=== PATIENT | male | born 1950 | race American Indian/Alaskan Native ===

== ENCOUNTER 2020-08-07 03:02 | Inpatient (IN) | payer BC, MEDICAID, OTHER ==
[2020-08-07] MEDS ORDERED: SODIUM CHLORIDE 0.9% 1000 ML 1,000 ML IV ONE ×4 (03:20→05:44)
--- NOTE | 2020-08-07 03:21 | Emergency Department Report ---
ED General Adult HPI - General Chief complaint: Hyperglycemia Stated complaint: HYPERGLYCEMIA PUI?: No Time Seen by Provider: 08/07/20 03:19 Source: patient, EMS Mode of arrival: Stretcher Limitations: No Limitations - History of Present Illness Initial comments: Patient is a 70-year-old male who presents emergency room for elevated blood sugar. Patient states he is diabetic but nobody will give him his insulin. Patient states he is got dry mouth and increased urinary frequency. Patient has got increased thirst. Patient denies chest pain or shortness of breath. Patient denies abdominal pain. Patient denies nausea vomiting. Patient states he has type 2 diabetes. Patient denies headache. Patient denies blurry vision. Patient denies recent travel. Patient denies recent international travel. Patient denies exposure to the novel coronavirus. Patient denies sick contacts. Patient denies fever and chills. Patient denies cough. Patient denies diarrhea. Patient denies coming in contact with anybody with symptoms of the novel coronavirus. -: Sudden Severity scale (0 -10): 0 Consistency: constant Associated Symptoms: malaise. denies: confusion, chest pain, cough, diaphoresis, fever/chills, headaches, loss of appetite, nausea/vomiting, rash, seizure, shortness of breath, syncope, weakness Treatments Prior to Arrival: none - Related Data Home Medications Medication Instructions Recorded Confirmed Last Taken No Known Home Medications [No 08/07/20 08/07/20 Unknown Reported Home Medications] Allergies Allergy/AdvReac Type Severity Reaction Status Date / Time No Known Allergies Allergy Verified 08/07/20 04:16 ED Review of Systems ROS: Stated complaint: HYPERGLYCEMIA Other details as noted in HPI Constitutional: denies: chills, fever Eyes: denies: eye pain, eye discharge, vision change ENT: denies: ear pain, throat pain Respiratory: denies: cough, shortness of breath, wheezing Cardiovascular: denies: chest pain, palpitations Endocrine: see HPI, increased thirst, increased urine Gastrointestinal: denies: abdominal pain, nausea, diarrhea Genitourinary: denies: urgency, dysuria Musculoskeletal: denies: back pain, joint swelling, arthralgia Skin: denies: rash, lesions Neurological: denies: headache, weakness, paresthesias Psychiatric: denies: anxiety, depression Hematological/Lymphatic: denies: easy bleeding, easy bruising ED Past Medical Hx - Past Medical History Previous Medical History?: Yes Hx Diabetes: Yes - Surgical History Past Surgical History?: No - Family History Family history: no significant - Social History Smoking Status: Never Smoker Substance Use Type: None - Medications Home Medications: Home Medications Medication Instructions Recorded Confirmed Last Taken Type No Known Home Medications [No 08/07/20 08/07/20 Unknown History Reported Home Medications] ED Physical Exam - General Limitations: No Limitations General appearance: alert, in no apparent distress - Head Head exam: Present: atraumatic, normocephalic - Eye Eye exam: Present: normal appearance - ENT ENT exam: Present: mucous membranes dry - Neck Neck exam: Present: normal inspection - Respiratory Respiratory exam: Present: normal lung sounds bilaterally. Absent: respiratory distress - Cardiovascular Cardiovascular Exam: Present: regular rate, normal rhythm. Absent: systolic murmur, diastolic murmur, rubs, gallop - GI/Abdominal GI/Abdominal exam: Present: soft, normal bowel sounds - Rectal Rectal exam: Present: deferred - Extremities Exam Extremities exam: Present: normal inspection - Back Exam Back exam: Present: normal inspection - Neurological Exam Neurological exam: Present: alert, oriented X3 - Psychiatric Psychiatric exam: Present: normal affect, normal mood - Skin Skin exam: Present: warm, dry, intact, normal color. Absent: rash ED Course Vital Signs 08/07/20 08/07/20 08/07/20 03:20 03:30 04:00 Temperature 97.6 F Pulse Rate 133 H 122 H 126 H Respiratory 23 24 29 H Rate Blood Pressure 172/82 142/87 Blood Pressure 172/82 [Left] O2 Sat by Pulse 96 98 Oximetry 08/07/20 08/07/20 08/07/20 04:31 05:01 05:31 Temperature Pulse Rate 117 H 116 H 115 H Respiratory 17 22 22 Rate Blood Pressure 179/92 169/92 Blood Pressure [Left] O2 Sat by Pulse 97 98 Oximetry - Reevaluation(s) Reevaluation #1: Nurse unable to obtain a peripheral IV. A ultrasound-guided peripheral IV was obtained in the right upper arm. See procedure note. Patient tolerated procedure well. 08/07/20 03:35 Reevaluation #2: Patient's heart rate improved. Patient will be given continuous normal saline boluses. 08/07/20 04:09 Reevaluation #3: Patient severely acidotic as most likely due to DKA. Patient has elevated sugar. Patient will be started on DKA protocol to include fluids and insulin drip. 08/07/20 04:30 Reevaluation #4: I discussed all results with patient. I discussed plan of care with patient. Patient agrees with plan of care and admission. Patient to be admitted to the hospitalist service. 08/07/20 05:10 - Consultations Consultation #1: Hospitalist consulted for admission. Hospitalist to admit patient. 08/07/20 05:10 - EJ/Peripheral Line Arm R Time Out Performed: Yes Indications: nurses unable to establis Skin Cleansed in Sterile Fashion: Yes Size: 18 Dressing Placed: Tegaderm, tape Patient Tolerated Procedure: well, no complications Additional Comments: Ultrasound-guided peripheral IV placed. IV placed in the right upper arm. Nonpulsatile blood return noted. ED Medical Decision Making - Lab Data Result diagrams: 08/07/20 03:30 08/07/20 04:46 - Medical Decision Making Patient is a 70-year-old male who presents emergency room for hypoglycemia patient complains of elevated blood sugar, increased thirst and increased urinary frequency. Patient has been out of insulin for quite some time. Patient was quite dehydrated and EMS and the nurses had difficulty starting an IV so a ultrasound-guided IV was placed. I placed a right upper extremity deep vein IV. See procedure note. Patient had labs done which were consistent with metabolic acidosis and DKA with hyperglycemia, acidosis, elevated anion gap and low bicarb. Patient's pH was very low. Patient was given multiple liters of fluid. Patient was then placed on a DKA protocol to include multiple liters of fluid and an insulin drip. Patient admitted to the hospitalist service for further evaluation and treatment and into the ICU. Critical care time documented due to the multiple reassessments, prolonged time at the bedside, interpretation of diagnostics and labs. - Differential Diagnosis DKA, hyperglycemia, noncompliance Critical Care Time: Yes Critical care time in (mins) excluding proc time.: 35 Critical care attestation.: If time is entered above; I have spent that time in minutes in the direct care of this critically ill patient, excluding procedure time. Critical Care Time: 35 minutes ED Disposition Clinical Impression: Hyperglycemia, Increased thirst, Hyperkalemia DKA (diabetic ketoacidoses) Qualifiers: Diabetes mellitus type: type 2 Diabetes mellitus complication detail: without coma Qualified Code(s): E11.10 - Type 2 diabetes mellitus with ketoacidosis without coma Disposition: DC-09 OP ADMIT IP TO THIS HOSP Is pt being admited?: Yes Does the pt Need Aspirin: No Condition: Critical Instructions: Diabetic Ketoacidosis (ED) Time of Disposition: 05:18
[2020-08-07 04:35] LABS: Basophils # (Auto) 0.1 K/mm3 (0.0-0.1); Basophils % (Auto) 0.3 % (0.0-1.8); Lymphocytes # (Auto) 0.8 K/mm3 (1.2-5.4); Lymphocytes % (Auto) 4.8 % (13.4-35.0); Mean Corpuscular HGB Conc 31 % (32-34); Mean Corpuscular Volume 93 fl (84-94); Monocytes # (Auto) 1.1 K/mm3 (0.0-0.8); Monocytes % (Auto) 6.3 % (0.0-7.3); Platelet Count 106 K/mm3 (140-440); Red Blood Count 5.63 M/mm3 (3.65-5.03); Red Cell Distribution Width 15.9 % (13.2-15.2)
[2020-08-07] MEDS ORDERED: DEXTROSE 50% IN WATER (25GM) 50 ML SYRINGE IV PRN ×2 (04:36→05:43)
[2020-08-07 04:44] LABS: Hematocrit 52.3 % (35.5-45.6); Hemoglobin 16.1 gm/dl (11.8-15.2)
[2020-08-07 04:45] LABS: Bilirubin,Urine NEG (Negative); Blood,Urine MOD (Negative); Color,Urine Straw (Yellow); Hyaline Casts,Urine 3 /LPF; Urobilinogen,Urine < 2.0 mg/dL (<2.0)
[2020-08-07] MEDS ORDERED: D5W/0.45% NACL/KCL 20 MEQ 20 MEQ/1,000 ML BAG IV SCH (05:00)
[2020-08-07] MEDS: INSULIN REGULAR, HUMAN 100 UNITS in SODIUM CHLORIDE 0.9% 99 ML IV SCH ×2 (05:19→14:49)
[2020-08-07 05:24] LABS: Calcium 8.4 mg/dL (8.4-10.2)
[2020-08-07] MEDS ORDERED: ONDANSETRON 4 MG/2 ML INJ IV PRN (05:43)
[2020-08-07] MEDS ORDERED: MAGNESIUM HYDROXIDE (MOM) ORAL LIQD UDC PO PRN (05:43)
[2020-08-07] MEDS ORDERED: MORPHINE 2 MG/1 ML INJ IV PRN (05:43)
[2020-08-07] MEDS ORDERED: SODIUM CHLORIDE 0.9% 1000 ML 1,000 ML IV SCH (05:45)
[2020-08-07] MEDS ORDERED: CALCIUM CHLORIDE 1,000 MG/10 ML SDV IVP ONE (05:47)
--- NOTE | 2020-08-07 06:13 | History and Physical Report ---
History of Present Illness Date of examination: 08/07/20 Date of admission: 08/07/2020 Chief complaint: Elevated Blood Glucose History of present illness: 70-year-old -Irish male with known history of diabetes mellitus presenting in the emergency room today for evaluation of elevated blood glucose. Patient indicates that he has been on Metformin for his diabetes mellitus but had stopped taking the medication several months ago. He also has not been on his insulin is scheduled. He has been having dry mouth, increased thirst and increased urinary frequency. Patient denies any fever or chills, no chest pain or shortness of breath, no nausea vomiting, no abdominal pain. No hematuria or dysuria. Patient denies any sick contacts and no recent travel. Denies any contact with anyone with COVID-19. Work-up in the emergency room today reveals elevated blood glucose in the 600s, hyperkalemia of 6.0, anion gap of 46. Patient is being admitted into the intensive care unit with diabetic ketoacidosis and started on insulin and IV fluid. Past History Past Medical History: diabetes Past Surgical History: No surgical history Social history: no significant social history Family history: no significant family history Medications and Allergies Allergies Allergy/AdvReac Type Severity Reaction Status Date / Time No Known Allergies Allergy Verified 08/07/20 04:16 Home Medications Medication Instructions Recorded Confirmed Last Taken Type No Known Home Medications [No 08/07/20 08/07/20 Unknown History Reported Home Medications] Active Meds: Active Medications Dextrose (Dextrose 50% In Water (25gm) 50 Ml Syringe) 0 ml IV Q30MIN PRN; Protocol PRN Reason: Hypoglycemia Heparin Sodium (Porcine) (Heparin 5,000 Unit/1 Ml Vial) 5,000 unit SUB-Q Q8HR JACKIE Insulin Human Regular 100 (units/ Sodium Chloride) 100 mls @ 1 mls/hr IV TITR JACKIE; Protocol Last Admin: 08/07/20 05:19 Dose: 8 units/hr, 8 mls/hr Documented by: Potassium Chloride/Dextrose/Sod Cl (D5w/0.45% Nacl/Kcl 20 Meq) 20 meq in 1,000 mls @ 125 mls/hr IV DIRECT JACKIE Sodium Chloride (Nacl 0.9% 1000 Ml) 1,000 mls @ 999 mls/hr IV BOLUS ONE Stop: 08/07/20 06:44 Sodium Chloride (Nacl 0.9% 1000 Ml) 1,000 mls @ 150 mls/hr IV DIRECT JACKIE Magnesium Hydroxide (Magnesium Hydroxide (Mom) Oral Liqd Udc) 30 ml PO Q4H PRN PRN Reason: Constipation Morphine Sulfate (Morphine 2 Mg/1 Ml Inj) 2 mg IV Q4H PRN PRN Reason: Pain, Moderate (4-6) Ondansetron HCl (Ondansetron 4 Mg/2 Ml Inj) 4 mg IV Q8H PRN PRN Reason: Nausea And Vomiting Sodium Chloride (Sodium Chloride 0.9% 10 Ml Flush Syringe) 10 ml IV BID JACKIE Sodium Chloride (Sodium Chloride 0.9% 10 Ml Flush Syringe) 10 ml IV PRN PRN PRN Reason: LINE FLUSH Review of Systems Constitutional: no fever, no chills Ears, nose, mouth and throat: no nasal congestion, no sore throat Cardiovascular: no chest pain, no palpitations Respiratory: no cough, no shortness of breath Gastrointestinal: no abdominal pain, no nausea, no vomiting, no diarrhea Genitourinary Male: urinary frequency, no dysuria, no hematuria, no flank pain Musculoskeletal: no neck pain, no low back pain Integumentary: no rash, no pruritis Neurological: no headaches, no confusion Psychiatric: no anxiety, no depression Endocrine: excessive thirst, polydipsia, polyuria, no nocturia, no weight change Exam - Constitutional Vitals: Temp Pulse Resp BP Pulse Ox 97.6 F 115 H 22 169/92 98 08/07/20 03:20 08/07/20 05:31 08/07/20 05:31 08/07/20 05:31 08/07/20 05:31 General appearance: Present: no acute distress, well-nourished, other (Dry oral Mucosa) - EENT Eyes: Present: PERRL, EOM intact. Absent: scleral icterus ENT: hearing intact, clear oral mucosa, dentition normal - Neck Neck: Present: supple - Respiratory Respiratory effort: normal Respiratory: bilateral: CTA - Cardiovascular Rhythm: regular Heart Sounds: Present: S1 & S2. Absent: gallop, systolic murmur, diastolic murm ur, rub, click - Extremities Extremities: no ischemia, pulses intact, pulses symmetrical, No edema, normal temperature, normal color, Full ROM Peripheral Pulses: within normal limits - Abdominal General gastrointestinal: Present: soft, non-tender, non-distended, normal bowel sounds. Absent: mass - Integumentary Integumentary: Present: clear, warm, dry. Absent: rash - Musculoskeletal Musculoskeletal: strength equal bilaterally - Psychiatric Psychiatric: appropriate mood/affect, intact judgment & insight, memory intact, cooperative - Neurologic Neurologic: CNII-XII intact, no focal deficits, moves all extremities Results - Labs CBC & Chem 7: 08/07/20 03:30 08/07/20 04:46 Labs: Abnormal lab results 08/07/20 08/07/20 08/07/20 Range/Units 03:27 03:30 03:30 WBC 17.1 H (4.5-11.0) K/mm3 RBC 5.63 H (3.65-5.03) M/mm3 Hgb 16.1 H (11.8-15.2) gm/dl Hct 52.3 H (35.5-45.6) % MCHC 31 L (32-34) % RDW 15.9 H (13.2-15.2) % Plt Count 106 L (140-440) K/mm3 Lymph % (Auto) 4.8 L (13.4-35.0) % Lymph # (Auto) 0.8 L (1.2-5.4) K/mm3 [place] # (Auto) 1.1 H (0.0-0.8) K/mm3 Seg Neutrophils % 88.6 H (40.0-70.0) % Seg Neutrophils # 15.1 H (1.8-7.7) K/mm3 VBG pH (7.320-7.420) Sodium 127 L (137-145) mmol/L Potassium 5.7 H (3.6-5.0) mmol/L Chloride 82.9 L (98-107) mmol/L Carbon Dioxide 4 L* (22-30) mmol/L BUN 41 H (9-20) mg/dL Creatinine 2.0 H (0.8-1.3) mg/dL Glucose 638 H* (75-100) mg/dL POC Glucose > 600 H (70-105) mg/dL Alkaline Phosphatase 193 H (35-129) units/L Total Protein 8.5 H (6.3-8.2) g/dL 06/25/21 06/25/21 Range/Units 03:30 04:46 WBC (4.5-11.0) K/mm3 RBC (3.65-5.03) M/mm3 Hgb (11.8-15.2) gm/dl Hct (35.5-45.6) % MCHC (32-34) % RDW (13.2-15.2) % Plt Count (140-440) K/mm3 Lymph % (Auto) (13.4-35.0) % Lymph # (Auto) (1.2-5.4) K/mm3 [place] # (Auto) (0.0-0.8) K/mm3 Seg Neutrophils % (40.0-70.0) % Seg Neutrophils # (1.8-7.7) K/mm3 VBG pH 7.016 L* (7.320-7.420) Sodium 131 L (137-145) mmol/L Potassium 6.0 H (3.6-5.0) mmol/L Chloride 84.0 L (98-107) mmol/L Carbon Dioxide 5 L* (22-30) mmol/L BUN 43 H (9-20) mg/dL Creatinine 2.1 H (0.8-1.3) mg/dL Glucose 604 H* (75-100) mg/dL POC Glucose (70-105) mg/dL Alkaline Phosphatase (35-129) units/L Total Protein (6.3-8.2) g/dL Assessment and Plan - Patient Problems (1) DKA (diabetic ketoacidoses) Current Visit: Yes Status: Acute Qualifiers: Diabetes mellitus type: type 2 Diabetes mellitus complication detail: [facility] Qualified Code(s): E11.10 - Type 2 diabetes mellitus with ket oacidosis without coma Plan to address problem: Patient placed on insulin drip and IV fluid normal saline. Will titrate according to protocol. Blood glucose will be closely monitored. Will check hemoglobin A1c. Dietary consults requested. Patient counseled on compliance with medications. (2) Hyperkalemia Current Visit: Yes Status: Acute Plan to address problem: Possibly due to diabetic ketoacidosis. We will continue IV fluid and insulin drip. We will monitor chemistry closely. (3) DVT prophylaxis Current Visit: Yes Status: Acute Plan to address problem: Patient placed on subcutaneous heparin. (4) Full code status Current Visit: Yes Status: Acute Plan to address problem: Patient is a full code.
[2020-08-07 07:29] LABS: BUN/Creatinine Ratio 23; Blood Urea Nitrogen 42 mg/dL (9-20); Calcium 8.3 mg/dL (8.4-10.2); Hemolysis Index 18
[2020-08-07 08:58] LABS: Calcium 8.2 mg/dL (8.4-10.2)
[2020-08-07] MEDS ORDERED: SODIUM BICARBONATE 150 MEQ in WATER, STERILE *NICU ONLY 1,000 SYR IV SCH (09:00)
[2020-08-07] MEDS: SODIUM BICARBONATE 150 MEQ in WATER FOR INJECTION (PF) 1,000 ML IV SCH (10:17)
[2020-08-07] MEDS ORDERED: CALCIUM CHLORIDE 1,000 MG in SODIUM CHLORIDE 0.9% 100 ML IV ONE (11:00)
[2020-08-07] MEDS: HEPARIN 5,000 UNIT/1 ML VIAL SUB-Q SCH ×3 (11:18→21:56)
--- NOTE | 2020-08-07 11:27 | Consultation ---
History of Present Illness Consult date: 08/07/20 Requesting physician: VENUS HELMS Reason for consult: other (DKA) History of present illness: PULMONARY/CCM CONSULT NOTE (Full dictation # [id number]) Please see dictated notes for full details Past History Past Medical History: diabetes Past Surgical History: No surgical history Social history: no significant social history Family history: no significant family history Medications and Allergies Allergies Allergy/AdvReac Type Severity Reaction Status Date / Time No Known Allergies Allergy Verified 08/07/20 04:16 Home Medications Medication Instructions Recorded Confirmed Last Taken Type No Known Home Medications [No 08/07/20 08/07/20 Unknown History Reported Home Medications] Active Meds: Active Medications Dextrose (Dextrose 50% In Water (25gm) 50 Ml Syringe) 0 ml IV Q30MIN PRN; Protocol PRN Reason: Hypoglycemia Heparin Sodium (Porcine) (Heparin 5,000 Unit/1 Ml Vial) 5,000 unit SUB-Q Q8HR JACKIE Last Admin: 08/07/20 11:18 Dose: Not Given Documented by: Insulin Human Regular 100 (units/ Sodium Chloride) 100 mls @ 1 mls/hr IV TITR JACKIE; Protocol Last Titration: 08/07/20 10:00 Dose: 6 units/hr, 6 mls/hr Documented by: Sodium Bicarbonate 150 meq/ (Sterile Water) 1,150 mls @ 125 mls/hr IV DIRECT JACKIE Last Admin: 08/07/20 10:17 Dose: 125 mls/hr Documented by: Magnesium Hydroxide (Magnesium Hydroxide (Mom) Oral Liqd Udc) 30 ml PO Q4H PRN PRN Reason: Constipation Morphine Sulfate (Morphine 2 Mg/1 Ml Inj) 2 mg IV Q4H PRN PRN Reason: Pain, Moderate (4-6) Ondansetron HCl (Ondansetron 4 Mg/2 Ml Inj) 4 mg IV Q8H PRN PRN Reason: Nausea And Vomiting Sodium Chloride (Sodium Chloride 0.9% 10 Ml Flush Syringe) 10 ml IV BID JACKIE Last Admin: 08/07/20 10:45 Dose: 10 ml Documented by: Sodium Chloride (Sodium Chloride 0.9% 10 Ml Flush Syringe) 10 ml IV PRN PRN PRN Reason: LINE FLUSH Physical Examination Vital signs: Vital Signs Temp Pulse Resp BP Pulse Ox 97.6 F 133 H 23 172/82 96 08/07/20 03:20 08/07/20 03:20 08/07/20 03:20 08/07/20 03:20 08/07/20 03:20 Results - Laboratory Findings CBC and BMP: 08/07/20 03:30 08/07/20 08:29 Abnormal lab findings: Abnormal Labs 08/07/20 08/07/20 08/07/20 03:27 03:30 03:30 WBC 17.1 H RBC 5.63 H Hgb 16.1 H Hct 52.3 H MCHC 31 L RDW 15.9 H Plt Count 106 L Lymph % (Auto) 4.8 L Lymph # (Auto) 0.8 L [place] # (Auto) 1.1 H Seg Neutrophils % 88.6 H Seg Neutrophils # 15.1 H VBG pH Sodium 127 L Potassium 5.7 H Chloride 82.9 L Carbon Dioxide 4 L* BUN 41 H Creatinine 2.0 H Glucose 638 H* POC Glucose > 600 H Hemoglobin A1c Calcium Phosphorus Magnesium Alkaline Phosphatase 193 H Total Protein 8.5 H 08/07/20 08/07/20 08/07/20 03:30 04:46 06:06 WBC RBC Hgb Hct MCHC RDW Plt Count Lymph % (Auto) Lymph # (Auto) [place] # (Auto) Seg Neutrophils % Seg Neutrophils # VBG pH 7.016 L* Sodium 131 L Potassium 6.0 H Chloride 84.0 L Carbon Dioxide 5 L* BUN 43 H Creatinine 2.1 H Glucose 604 H* POC Glucose Hemoglobin A1c 20.6 H Calcium Phosphorus Magnesium Alkaline Phosphatase Total Protein 08/07/20 08/07/20 08/07/20 06:06 06:24 07:38 WBC RBC Hgb Hct MCHC RDW Plt Count Lymph % (Auto) Lymph # (Auto) [place] # (Auto) Seg Neutrophils % Seg Neutrophils # VBG pH Sodium 133 L Potassium 5.4 H Chloride 90.3 L Carbon Dioxide < 2.0 L* BUN 42 H Creatinine 1.8 H Glucose 558 H* POC Glucose 550 H 444 H Hemoglobin A1c Calcium 8.3 L Phosphorus 5.90 H Magnesium 2.40 H Alkaline Phosphatase Total Protein 08/07/20 08/07/20 08/07/20 08:29 09:18 10:16 WBC RBC Hgb Hct MCHC RDW Plt Count Lymph % (Auto) Lymph # (Auto) [place] # (Auto) Seg Neutrophils % Seg Neutrophils # VBG pH Sodium 136 L Potassium 5.3 H Chloride 93.7 L Carbon Dioxide 7 L* BUN 42 H Creatinine 1.8 H Glucose 411 H POC Glucose 400 H 346 H Hemoglobin A1c Calcium 8.2 L Phosphorus Magnesium Alkaline Phosphatase Total Protein 08/07/20 11:07 WBC RBC Hgb Hct MCHC RDW Plt Count Lymph % (Auto) Lymph # (Auto) [place] # (Auto) Seg Neutrophils % Seg Neutrophils # VBG pH Sodium Potassium Chloride Carbon Dioxide BUN Creatinine Glucose POC Glucose 346 H Hemoglobin A1c Calcium Phosphorus Magnesium Alkaline Phosphatase Total Protein
[2020-08-07 13:30] LABS: BUN/Creatinine Ratio 26; Blood Urea Nitrogen 37 mg/dL (9-20); Calcium 9.2 mg/dL (8.4-10.2); Hemolysis Index 16
[2020-08-07] MEDS: FAMOTIDINE 20 MG/2 ML INJ IV SCH (14:30)
--- NOTE | 2020-08-07 14:54 | Event Note ---
Date: 08/07/20 Patient seen and examined This is the second visit after midnight Patient appears very lethargic, denies any chest pain or shortness of breath S1 and S2 positive, clear to auscultation bilaterally Denies any abdominal pain Covid test ordered and pending Patient was not taking his medication for last 6 months, he just received first dose of Covid vaccine Patient CO2 this morning at 2, initiate bicarbonate drip, obtain chest x-ray Monitor BMP every 4 hours, continue insulin drip, n.p.o. with ice chips Reviewed labs and discussed plan of care at bedside with RN -It took me about 28 minutes to reevaluate and reasses this patient, discussed with RN/CM, review medical documents, lab results, imaging, medication list and placing order.
[2020-08-07] MEDS ORDERED: CALCIUM GLUCONATE 2,000 MG in SODIUM CHLORIDE 0.9% 100 ML IV ONE ×2 (15:30→17:00)
[2020-08-07 15:35] LABS: BUN/Creatinine Ratio 28; Blood Urea Nitrogen 31 mg/dL (9-20); Calcium 8.7 mg/dL (8.4-10.2); Hemolysis Index 6
[2020-08-07] MEDS: INSULIN NPH, HUMAN 100 UNIT/1 ML SUB-Q SCH (18:19)
--- NOTE | 2020-08-07 19:24 | XRay Report ---
CHEST 1 VIEW 08/07/2020 3:27 PM INDICATION / CLINICAL INFORMATION: chest pain. COMPARISON: None available. FINDINGS: SUPPORT DEVICES: None. HEART / MEDIASTINUM: No significant abnormality. LUNGS / PLEURA: No significant pulmonary or pleural abnormality. No pneumothorax. ADDITIONAL FINDINGS: No significant additional findings. IMPRESSION: 1. No acute findings. Signer Name: Tello Guerrero MD Signed: 08/07/2020 7:20 PM Workstation Name: [id number]
[2020-08-07 21:18] LABS: BUN/Creatinine Ratio 26; Blood Urea Nitrogen 26 mg/dL (9-20); Hemolysis Index 25
[2020-08-07] MEDS: INSULIN REGULAR, HUMAN 100 UNITS/1 ML SUB-Q SCH (22:50)
[2020-08-07 23:26] LABS: BUN/Creatinine Ratio 26; Blood Urea Nitrogen 23 mg/dL (9-20); Calcium 8.7 mg/dL (8.4-10.2); Hemolysis Index 11
--- NOTE | 2020-08-08 00:15 | Consultation ---
DATE OF CONSULTATION: 08/07/2020 PULMONARY CRITICAL CARE CONSULTATION CONSULTING PHYSICIAN: Dr. Jam Tucker. REASON FOR CONSULTATION: Diabetic ketoacidosis. CHIEF COMPLAINT AND HISTORY OF PRESENT ILLNESS: The patient is a 70-year-old male with a past medical history of diabetes, came into the Emergency Room yesterday complaining of high blood sugars. He has also been complaining of nausea, vomiting, polydipsia, and generalized malaise at home. He is on metformin. He apparently had stopped taking the medication several months ago and has not been taking his insulin. He also complained of a cough that is mostly nonproductive. He denied any sick contacts. He states he has gotten one dose of his COVID-19 vaccination. He denies any new sores or wounds on his body. In the Emergency Room, he was found to have a high anion gap metabolic acidosis consistent with diabetic ketoacidosis, was started on IV insulin and ICU admission was requested and offered. We are asked to assist with management. When I stopped by to see him was resting in bed, still very weak, but appropriate feeling a little bit better. Definitely, he has nausea and vomiting has improved. He also denied any abdominal pain. When asked about a history of tobacco use or abuse, he stated that he quit smoking in 1972 and gave a less than [id number] tobacco smoking history. This really is as much of the history of presentation as I have. PAST MEDICAL HISTORY: Diabetes. PAST SURGICAL HISTORY: Unknown. MEDICATIONS: He was on at the time I stopped by to see him, according to the medication administration record included the following: Heparin 5000 units subQ q.8 hours, insulin drip was going at 6 units per hour, morphine sulfate 2 mg IV every 4 hours p.r.n. moderate pain, Zofran 4 mg IV q.8 hours p.r.n. nausea and vomiting. He was actually on D5 sterile water with 3 amps of bicarbonate per liter drip at 125 mL per hour. ALLERGIES: No known drug allergies. DIET: Well-built gentleman. Denies acute weight loss or gain in the preceding few weeks to months. FAMILY AND SOCIAL HISTORY: Lives in the community. Denies alcohol, tobacco or illicit drug use or abuse. Otherwise, denies any significant family history. REVIEW OF SYSTEMS: No loss of consciousness. No new onset seizures. No new onset focal weakness. Denies gross hematochezia or melena. Denies gross hematuria or dysuria. He did have the polyuria and polydipsia. Denies heat or cold intolerance. Complete 13-system review of system was obtained. Pertinent positives and/or negatives as in the body of history above, otherwise they are noncontributory. PHYSICAL EXAMINATION: VITAL SIGNS: At presentation and since he has been febrile, presentation temperature 97.6 degrees Fahrenheit, pulse of 133, respiratory rate of 23, blood pressure 172/82, O2 sats were 96% inspired oxygen concentration at that time was not recorded. When I stopped by to see him O2 sats were 99% that was on room air. GENERAL: He is an elderly looking male. Normocephalic and atraumatic. Talking to me in full sentences without significant respiratory effort at rest. HEAD, EYES, EARS, NOSE AND THROAT: Anicteric. No conjunctival erythema. Oropharynx was dry. Mallampati II oropharynx. NECK: No gross jugular venous distention. No thyromegaly. Grossly, there were no palpable lymph nodes in the supraclavicular or submandibular lymph node chains. LUNGS: Auscultation of both lung rojas unremarkable. Good bilateral air movement and clear. HEART: Sounds 1 and 2 are heard, regular rate and rhythm at the time of my evaluation without overt rubs or murmurs. ABDOMEN: Soft, full, bowel sounds are positive, nontender, no palpable hepatosplenomegaly. EXTREMITIES: Without overt digital clubbing or cyanosis, no pedal edema. Pedal pulses are 2+ bilaterally. NEUROLOGIC: Pupils are equal, round, about 4 mm, reactive to light. Extraocular muscle movements were intact. He moves all 4 extremities spontaneously. SKIN: Normal turgor in the areas examined without overt cellulitis or rash. Please see the registered nurses and wound care nurses' notes for full description of his skin. PSYCHIATRIC: Mood was normal. Affect was appropriate. He had intact judgment and insight and intact memory. LABORATORY DATA: From my review; admission white cell count 17,100; hemoglobin 16.1; hematocrit 52.3; platelet count 106. Venous blood gas showed a pH of 7.02. Serum sodium was 127, potassium 5.7, chloride was 83, bicarbonate was 4, BUN was 41, creatinine 2.0, glucose 638. Hemoglobin A1c has come back at 20.6. AST, ALT within normal limits. Liver function test within normal limits. Urinalysis, moderate blood, negative for nitrites or leukocyte esterase. Coronavirus PCR test is pending. No microbiology studies. No radiographic studies for my review. ASSESSMENT: 1. Acute severe metabolic acidosis secondary to diabetic ketoacidosis. 2. Diabetic ketoacidosis. 3. Acute kidney injury. 4. Hyperkalemia. 5. Hemoconcentration. 6. Medication noncompliance. 7. Thrombocytopenia. 8. Adult failure to thrive. 9. Hypertension at presentation. PLAN: He will be continued on the diabetic ketoacidosis protocol, continued on IV insulin therapy and volume resuscitation as well as electrolyte replacement. Continued tobacco abstinence has been counseled. P.r.n. oxygen will be given as necessary to keep sats greater than or equal to about 90%. Hopefully with continued hydration, the prerenal azotemia improved. For now, we will continue the bicarbonate drip and transfers transition him off that soon. His serum bicarbonate is up to 7. Hemoconcentration should also improve with hydration. I do feel that this leukocytosis is likely related to stress. I will, however, go ahead and get a procalcitonin level to help guide clinical decision making, but follow him clinically off antibiotics at this time. I will hold the heparin for now it is unclear if this is an acute onset thrombocytopenia or chronic problem. I do not have any prior labs on him. Nephrology consultation will be at the behest of the attending physician, but he is appropriate. We will keep an eye out for bleeding. I will begin GI prophylaxis with Pepcid, IV for now, p.o. once he is off the IV insulin therapy. Flu and pneumonia vaccination will be addressed per protocol. I will also go ahead and get a lactic acid level to better evaluate the leukocytosis and to perhaps guide volume resuscitation. Thank you very much for the consult, Dr. Tucker. We will follow along and make further recommendations as picture progresses/becomes clearer. He is critically ill on life-sustaining interventions including the IV insulin therapy at high risk of from cardiopulmonary and renal system decompensation. I should also mention the serum potassium is now within normal limits. At this time, I spent about 35-40 minutes of critical care time without overlap and excluding any procedural time that may be necessary. TID: [id number] RECEIPT: [id number] KIMBERLEY/ELAINE
[2020-08-08] MEDS: SODIUM BICARBONATE 150 MEQ in WATER FOR INJECTION (PF) 1,000 ML IV SCH ×2 (02:35→11:19)
[2020-08-08] MEDS: HEPARIN 5,000 UNIT/1 ML VIAL SUB-Q SCH ×3 (05:19→22:17)
[2020-08-08 06:11] LABS: Basophils % (Auto) 0.1 % (0.0-1.8); Eosinophils % (Auto) 0.1 % (0.0-4.3); Hematocrit 37.9 % (35.5-45.6); Hemoglobin 12.8 gm/dl (11.8-15.2); Lymphocytes % (Auto) 10.9 % (13.4-35.0); Mean Corpuscular HGB Conc 34 % (32-34); Mean Corpuscular Volume 86 fl (84-94); Monocytes # (Auto) 0.9 K/mm3 (0.0-0.8); Monocytes % (Auto) 9.6 % (0.0-7.3); Red Blood Count 4.43 M/mm3 (3.65-5.03); Red Cell Distribution Width 14.1 % (13.2-15.2)
[2020-08-08 06:16] LABS: Platelet Count 75 K/mm3 (140-440)
[2020-08-08 06:55] LABS: BUN/Creatinine Ratio 17; Blood Urea Nitrogen 19 mg/dL (9-20); Hemolysis Index 5
[2020-08-08] MEDS: INSULIN REGULAR, HUMAN 100 UNITS/1 ML SUB-Q SCH ×4 (08:25→22:13)
[2020-08-08] MEDS: INSULIN NPH, HUMAN 100 UNIT/1 ML SUB-Q SCH ×2 (08:33→18:12)
[2020-08-08] MEDS: FAMOTIDINE 20 MG/2 ML INJ IV SCH (09:22)
[2020-08-08] MEDS: SODIUM CHLORIDE 0.9% 1000 ML 1,000 ML IV SCH ×2 (13:36→18:37)
--- NOTE | 2020-08-08 16:17 | Progress Note ---
Assessment and Plan -- DKA (diabetic ketoacidoses) Patient placed on insulin drip and IV fluid normal saline. A1c 20.6, stop insulin drip as anion gap resolved Placed on consistent carb diet, sliding scale insulin and NPH 70/30 Adjust insulin doses for better adjustment of blood glucose Patient counseled on compliance with medications. -- Hyperkalemia, improving Possibly due to diabetic ketoacidosis. We will monitor chemistry closely. -- DVT prophylaxis Patient placed on subcutaneous heparin. -- Full code status Daily clinical course; 08/08/20; transfer to telemetry. adjust insulin dose for better glycemic control. a1c 20.6 . Subjective Date of service: 08/08/20 Interval history: Patient seen and examined. Medical records and medication list reviewed. No acute event overnight noted by the RN. Patient denies any chest pain or difficulty breathing. Patient states that he is feeling better and blood sugar has trended down, anion gap closed Discussed plan of care at bedside with patient. Objective - Exam Narrative Exam: GENERAL: well-developed and well-nourished elderly -[place] male lying on bed appeared to be in no discomfort. HEENT: Normocephalic. Atraumatic. No conjunctival congestion or icterus. Patient has moist mucous membranes. NECK: Supple. Trachea midline. CHEST/LUNGS: Clear to auscultated bilaterally, breathing nonlabored. No wheezes crackles or rhonchi. HEART/CARDIOVASCULAR: Regular in rate and rhythm. S1 and S2 positive. ABDOMEN: Abdomen is soft, nontender. Patient has normal bowel sounds. SKIN: There is no rash. Warm and dry. NEURO: No focal motor deficit. Follows command. MUSCULOSKELETAL: No joint effusion or tenderness. EXTRIMITY: No edema, no cyanosis or clubbing. PSYCH: Cooperative. - Constitutional Vitals: Vital Signs - 12hr 08/08/20 08/08/20 08/08/20 04:30 05:00 05:30 Temperature Pulse Rate 92 H 76 72 Respiratory 14 17 15 Rate Blood Pressure 113/68 105/57 106/63 O2 Sat by Pulse 98 98 99 Oximetry 08/08/20 08/08/20 08/08/20 06:00 06:30 07:00 Temperature 97.9 F Pulse Rate 68 64 81 Respiratory 15 14 15 Rate Blood Pressure 120/69 121/61 106/62 O2 Sat by Pulse 99 99 Oximetry 08/08/20 08/08/20 08/08/20 07:30 08:00 08:30 Temperature Pulse Rate 76 62 80 Respiratory 14 13 14 Rate Blood Pressure 105/63 108/66 105/66 O2 Sat by Pulse 99 97 98 Oximetry 08/08/20 08/08/20 08/08/20 09:00 09:30 10:00 Temperature Pulse Rate 96 H 94 H 99 H Respiratory 12 16 15 Rate Blood Pressure 101/65 115/61 113/58 O2 Sat by Pulse 96 96 95 Oximetry 08/08/20 08/08/20 08/08/20 10:30 11:00 11:30 Temperature Pulse Rate 89 76 85 Respiratory 14 12 12 Rate Blood Pressure 110/62 110/62 110/62 O2 Sat by Pulse 96 96 98 Oximetry 08/08/20 12:00 Temperature 98.0 F Pulse Rate 97 H Respiratory 15 Rate Blood Pressure 123/68 O2 Sat by Pulse 94 Oximetry - Labs CBC & Chem 7: 08/08/20 04:48 08/10/20 12:51 Labs: Abnormal lab results 08/07/20 08/07/20 08/07/20 Range/Units 16:10 17:02 17:42 Plt Count (140-440) K/mm3 Lymph % (Auto) (13.4-35.0) % Maries % (Auto) (0.0-7.3) % Lymph # (Auto) (1.2-5.4) K/mm3 Maries # (Auto) (0.0-0.8) K/mm3 Seg Neutrophils % (40.0-70.0) % Sodium (137-145) mmol/L Carbon Dioxide (22-30) mmol/L BUN (9-20) mg/dL Glucose (75-100) mg/dL POC Glucose 179 H 171 H 154 H (70-105) mg/dL 08/07/20 08/07/20 08/07/20 Range/Units 19:53 20:37 21:35 Plt Count (140-440) K/mm3 Lymph % (Auto) (13.4-35.0) % Maries % (Auto) (0.0-7.3) % Lymph # (Auto) (1.2-5.4) K/mm3 Maries # (Auto) (0.0-0.8) K/mm3 Seg Neutrophils % (40.0-70.0) % Sodium 136 L (137-145) mmol/L Carbon Dioxide 20 L D (22-30) mmol/L BUN 26 H (9-20) mg/dL Glucose 134 H (75-100) mg/dL POC Glucose 147 H 162 H (70-105) mg/dL 08/07/20 08/07/20 08/07/20 Range/Units 22:24 22:47 23:16 Plt Count (140-440) K/mm3 Lymph % (Auto) (13.4-35.0) % Maries % (Auto) (0.0-7.3) % Lymph # (Auto) (1.2-5.4) K/mm3 Maries # (Auto) (0.0-0.8) K/mm3 Seg Neutrophils % (40.0-70.0) % Sodium 136 L (137-145) mmol/L Carbon Dioxide 16 L (22-30) mmol/L BUN 23 H (9-20) mg/dL Glucose 194 H (75-100) mg/dL POC Glucose 176 H 158 H (70-105) mg/dL 08/08/20 08/08/20 08/08/20 Range/Units 00:45 01:28 02:31 Plt Count (140-440) K/mm3 Lymph % (Auto) (13.4-35.0) % Maries % (Auto) (0.0-7.3) % Lymph # (Auto) (1.2-5.4) K/mm3 Maries # (Auto) (0.0-0.8) K/mm3 Seg Neutrophils % (40.0-70.0) % Sodium (137-145) mmol/L Carbon Dioxide (22-30) mmol/L BUN (9-20) mg/dL Glucose (75-100) mg/dL POC Glucose 140 H 128 H 117 H (70-105) mg/dL 08/08/20 08/08/20 08/08/20 Range/Units 04:48 04:48 08:18 Plt Count 75 L (140-440) K/mm3 Lymph % (Auto) 10.9 L (13.4-35.0) % Maries % (Auto) 9.6 H (0.0-7.3) % Lymph # (Auto) 1.0 L (1.2-5.4) K/mm3 Maries # (Auto) 0.9 H (0.0-0.8) K/mm3 Seg Neutrophils % 79.3 H (40.0-70.0) % Sodium (137-145) mmol/L Carbon Dioxide 21 L (22-30) mmol/L BUN (9-20) mg/dL Glucose 142 H (75-100) mg/dL POC Glucose 188 H (70-105) mg/dL 08/08/20 08/08/20 Range/Units 11:47 15:15 Plt Count (140-440) K/mm3 Lymph % (Auto) (13.4-35.0) % Maries % (Auto) (0.0-7.3) % Lymph # (Auto) (1.2-5.4) K/mm3 Maries # (Auto) (0.0-0.8) K/mm3 Seg Neutrophils % (40.0-70.0) % Sodium (137-145) mmol/L Carbon Dioxide (22-30) mmol/L BUN (9-20) mg/dL Glucose (75-100) mg/dL POC Glucose 307 H 389 H (70-105) mg/dL
--- NOTE | 2020-08-08 17:43 | Progress Note ---
Assessment and Plan Acute severe metabolic acidosis secondary Diabetic ketoacidosis Acute kidney injury Hyperkalemia Hemoconcentration Medication noncompliance Thrombocytopenia Adult failure to thrive Hypertension - prn supplemental oxygen to keep O2 sats > 90% - prn bronchodilators (BEE) with pulm hygiene per RT - accuchecks with glycemic control per SSI for target blood glucose < 180 mg/dL - avoid nephrotoxins, renally dose all medications - continue mobility protocols to prevent pressure ulcers - PT/OT as tolerated - Wound care per RN/WCT - tobacco abstinence strongly counseled at the bedside - home oxygen evaluation at discharge - GI & VTE prophylaxis - Flu & pneumovax per protocol - Pulmonary out patient follow up for PFTs and optimization of respiratory status - prn analgesia per pain score - continue other care per attending / other consultants ... re-evaluate in am & prn Subjective Date of service: 08/08/20 Principal diagnosis: DKA; JOEL; Hyperkalemia; Thrombocytopenia; Adult FTT; HTN Interval history: Patient is seen today for: DKA; JOEL; Hyperkalemia; Thrombocytopenia; Adult FTT; HTN Seen and examined at bedside; 24hour events reviewed; nursing and respiratory care staff consulted; no adverse overnight events reported to me; resting peacefully in bed; no N/V/F/C; denies chest pain or SOB Objective Vital Signs - 12hr 08/08/20 08/08/20 08/08/20 06:00 06:30 07:00 Temperature 97.9 F Pulse Rate 68 64 81 Respiratory 15 14 15 Rate Blood Pressure 120/69 121/61 106/62 O2 Sat by Pulse 99 99 Oximetry 08/08/20 08/08/20 08/08/20 07:30 08:00 08:30 Temperature Pulse Rate 76 62 80 Respiratory 14 13 14 Rate Blood Pressure 105/63 108/66 105/66 O2 Sat by Pulse 99 97 98 Oximetry 08/08/20 08/08/20 08/08/20 09:00 09:30 10:00 Temperature Pulse Rate 96 H 94 H 99 H Respiratory 12 16 15 Rate Blood Pressure 101/65 115/61 113/58 O2 Sat by Pulse 96 96 95 Oximetry 08/08/20 08/08/20 08/08/20 10:30 11:00 11:30 Temperature Pulse Rate 89 76 85 Respiratory 14 12 12 Rate Blood Pressure 110/62 110/62 110/62 O2 Sat by Pulse 96 96 98 Oximetry 08/08/20 12:00 Temperature 98.0 F Pulse Rate 97 H Respiratory 15 Rate Blood Pressure 123/68 O2 Sat by Pulse 94 Oximetry Constitutional: no acute distress Eyes: non-icteric ENT: oropharynx moist Neck: supple, no lymphadenopathy Effort: normal Ascultation: Bilateral: clear Percussion: Bilateral: not dull Cardiovascular: regular rate and rhythm Gastrointestinal: normoactive bowel sounds, soft, non-tender, non-distended Integumentary: normal Extremities: no cyanosis, no edema, pulses normal, no ischemia or petechiae Neurologic: non-focal exam, pupils equal and round, CN II-XII normal, motor strength normal and Psychiatric: mood appropriate, affect normal CBC and BMP: 08/08/20 04:48 08/08/20 04:48 ABG, PT/INR, D-dimer: PT/INR, D-dimer D-Dimer 2909.58 ng/mlDDU (0-234) H 08/07/20 15:04 Abnormal lab findings: Abnormal Labs 08/07/20 08/07/20 08/07/20 03:27 03:30 03:30 WBC 17.1 H RBC 5.63 H Hgb 16.1 H Hct 52.3 H MCHC 31 L RDW 15.9 H Plt Count 106 L Lymph % (Auto) 4.8 L Powell % (Auto) Lymph # (Auto) 0.8 L Powell # (Auto) 1.1 H Seg Neutrophils % 88.6 H Seg Neutrophils # 15.1 H D-Dimer VBG pH Sodium 127 L Potassium 5.7 H Chloride 82.9 L Carbon Dioxide 4 L* BUN 41 H Creatinine 2.0 H Glucose 638 H* POC Glucose > 600 H Hemoglobin A1c Calcium Phosphorus Magnesium Alkaline Phosphatase 193 H Total Protein 8.5 H 08/07/20 08/07/20 08/07/20 03:30 04:46 06:06 WBC RBC Hgb Hct MCHC RDW Plt Count Lymph % (Auto) Powell % (Auto) Lymph # (Auto) Powell # (Auto) Seg Neutrophils % Seg Neutrophils # D-Dimer VBG pH 7.016 L* Sodium 131 L Potassium 6.0 H Chloride 84.0 L Carbon Dioxide 5 L* BUN 43 H Creatinine 2.1 H Glucose 604 H* POC Glucose Hemoglobin A1c 20.6 H Calcium Phosphorus Magnesium Alkaline Phosphatase Total Protein 08/07/20 08/07/20 08/07/20 06:06 06:24 07:38 WBC RBC Hgb Hct MCHC RDW Plt Count Lymph % (Auto) Powell % (Auto) Lymph # (Auto) Powell # (Auto) Seg Neutrophils % Seg Neutrophils # D-Dimer VBG pH Sodium 133 L Potassium 5.4 H Chloride 90.3 L Carbon Dioxide < 2.0 L* BUN 42 H Creatinine 1.8 H Glucose 558 H* POC Glucose 550 H 444 H Hemoglobin A1c Calcium 8.3 L Phosphorus 5.90 H Magnesium 2.40 H Alkaline Phosphatase Total Protein 08/07/20 08/07/20 08/07/20 08:29 09:18 10:16 WBC RBC Hgb Hct MCHC RDW Plt Count Lymph % (Auto) Powell % (Auto) Lymph # (Auto) Powell # (Auto) Seg Neutrophils % Seg Neutrophils # D-Dimer VBG pH Sodium 136 L Potassium 5.3 H Chloride 93.7 L Carbon Dioxide 7 L* BUN 42 H Creatinine 1.8 H Glucose 411 H POC Glucose 400 H 346 H Hemoglobin A1c Calcium 8.2 L Phosphorus Magnesium Alkaline Phosphatase Total Protein 08/07/20 08/07/20 08/07/20 11:07 12:15 13:02 WBC RBC Hgb Hct MCHC RDW Plt Count Lymph % (Auto) Powell % (Auto) Lymph # (Auto) Powell # (Auto) Seg Neutrophils % Seg Neutrophils # D-Dimer VBG pH Sodium 135 L Potassium 5.8 H Chloride Carbon Dioxide 11 L BUN 37 H Creatinine 1.4 H Glucose 221 H POC Glucose 346 H 301 H Hemoglobin A1c Calcium Phosphorus Magnesium Alkaline Phosphatase Total Protein 08/07/20 08/07/20 08/07/20 13:45 14:59 15:04 WBC RBC Hgb Hct MCHC RDW Plt Count Lymph % (Auto) Powell % (Auto) Lymph # (Auto) Powell # (Auto) Seg Neutrophils % Seg Neutrophils # D-Dimer VBG pH Sodium 134 L Potassium Chloride Carbon Dioxide 12 L BUN 31 H Creatinine Glucose 171 H POC Glucose 245 H 198 H Hemoglobin A1c Calcium Phosphorus Magnesium Alkaline Phosphatase Total Protein 08/07/20 08/07/20 08/07/20 15:04 16:10 17:02 WBC RBC Hgb Hct MCHC RDW Plt Count Lymph % (Auto) Powell % (Auto) Lymph # (Auto) Powell # (Auto) Seg Neutrophils % Seg Neutrophils # D-Dimer 2909.58 H VBG pH Sodium Potassium Chloride Carbon Dioxide BUN Creatinine Glucose POC Glucose 179 H 171 H Hemoglobin A1c Calcium Phosphorus Magnesium Alkaline Phosphatase Total Protein 08/07/20 08/07/20 08/07/20 17:42 19:53 20:37 WBC RBC Hgb Hct MCHC RDW Plt Count Lymph % (Auto) Powell % (Auto) Lymph # (Auto) Powell # (Auto) Seg Neutrophils % Seg Neutrophils # D-Dimer VBG pH Sodium 136 L Potassium Chloride Carbon Dioxide 20 L D BUN 26 H Creatinine Glucose 134 H POC Glucose 154 H 147 H Hemoglobin A1c Calcium Phosphorus Magnesium Alkaline Phosphatase Total Protein 08/07/20 08/07/20 08/07/20 21:35 22:24 22:47 WBC RBC Hgb Hct MCHC RDW Plt Count Lymph % (Auto) Powell % (Auto) Lymph # (Auto) Powell # (Auto) Seg Neutrophils % Seg Neutrophils # D-Dimer VBG pH Sodium 136 L Potassium Chloride Carbon Dioxide 16 L BUN 23 H Creatinine Glucose 194 H POC Glucose 162 H 176 H Hemoglobin A1c Calcium Phosphorus Magnesium Alkaline Phosphatase Total Protein 08/07/20 08/08/20 08/08/20 23:16 00:45 01:28 WBC RBC Hgb Hct MCHC RDW Plt Count Lymph % (Auto) Powell % (Auto) Lymph # (Auto) Powell # (Auto) Seg Neutrophils % Seg Neutrophils # D-Dimer VBG pH Sodium Potassium Chloride Carbon Dioxide BUN Creatinine Glucose POC Glucose 158 H 140 H 128 H Hemoglobin A1c Calcium Phosphorus Magnesium Alkaline Phosphatase Total Protein 08/08/20 08/08/20 08/08/20 02:31 04:48 04:48 WBC RBC Hgb Hct MCHC RDW Plt Count 75 L Lymph % (Auto) 10.9 L Powell % (Auto) 9.6 H Lymph # (Auto) 1.0 L Powell # (Auto) 0.9 H Seg Neutrophils % 79.3 H Seg Neutrophils # D-Dimer VBG pH Sodium Potassium Chloride Carbon Dioxide 21 L BUN Creatinine Glucose 142 H POC Glucose 117 H Hemoglobin A1c Calcium Phosphorus Magnesium Alkaline Phosphatase Total Protein 08/08/20 08/08/20 08/08/20 08:18 11:47 15:15 WBC RBC Hgb Hct MCHC RDW Plt Count Lymph % (Auto) Powell % (Auto) Lymph # (Auto) Powell # (Auto) Seg Neutrophils % Seg Neutrophils # D-Dimer VBG pH Sodium Potassium Chloride Carbon Dioxide BUN Creatinine Glucose POC Glucose 188 H 307 H 389 H Hemoglobin A1c Calcium Phosphorus Magnesium Alkaline Phosphatase Total Protein Allied health notes reviewed: nursing
[2020-08-09] MEDS: HEPARIN 5,000 UNIT/1 ML VIAL SUB-Q SCH ×3 (05:50→21:52)
[2020-08-09] MEDS: SODIUM CHLORIDE 0.9% 1000 ML 1,000 ML IV SCH (08:09)
[2020-08-09] MEDS: INSULIN REGULAR, HUMAN 100 UNITS/1 ML SUB-Q SCH ×4 (08:09→21:52)
[2020-08-09] MEDS ORDERED: NITROGLYCERIN TL PRN (09:24)
[2020-08-09] MEDS: FAMOTIDINE 20 MG/2 ML INJ IV SCH (10:10)
[2020-08-09] MEDS: INSULIN NPH, HUMAN 100 UNIT/1 ML SUB-Q SCH ×2 (10:10→17:13)
[2020-08-09] MEDS ORDERED: NITROGLYCERIN 0.4 MG TAB SUBL SL PRN (11:48)
--- NOTE | 2020-08-09 15:15 | Progress Note ---
Assessment and Plan -- DKA (diabetic ketoacidoses) Patient placed on insulin drip and IV fluid normal saline. A1c 20.6, stopped insulin drip as anion gap resolved Placed on consistent carb diet, sliding scale insulin and NPH 70/30 Adjust insulin doses for better adjustment of blood glucose Patient counseled on compliance with medications. -- Hyperkalemia, improving Possibly due to diabetic ketoacidosis. We will monitor chemistry closely. -- DVT prophylaxis Patient placed on subcutaneous heparin. -- Full code status Daily clinical course; 08/08/20; transfer to telemetry. adjust insulin dose for better glycemic control. a1c 20.6 . 08/09/20: Patient blood sugar remains greater than 350, will increase NPH dose, continue to follow clinically. If blood glucose improved possible DC tomorrow morning. Subjective Date of service: 08/09/20 Principal diagnosis: DKA; JOEL; Hyperkalemia; Thrombocytopenia; Adult FTT; HTN Interval history: Patient seen and examined. Medical records and medication list reviewed. No acute event overnight noted by the RN. Patient denies any chest pain or difficulty breathing. Blood glucose remains greater than 350 Discussed plan of care at bedside with patient. Objective - Exam Narrative Exam: GENERAL: well-developed and well-nourished elderly -Cong[place]ese male lying on bed appeared to be in no discomfort. HEENT: Normocephalic. Atraumatic. No conjunctival congestion or icterus. Patient has moist mucous membranes. NECK: Supple. Trachea midline. CHEST/LUNGS: Clear to auscultated bilaterally, breathing nonlabored. No wheezes crackles or rhonchi. HEART/CARDIOVASCULAR: Regular in rate and rhythm. S1 and S2 positive. ABDOMEN: Abdomen is soft, nontender. Patient has normal bowel sounds. SKIN: There is no rash. Warm and dry. NEURO: No focal motor deficit. Follows command. MUSCULOSKELETAL: No joint effusion or tenderness. EXTRIMITY: No edema, no cyanosis or clubbing. PSYCH: Cooperative. - Constitutional Vitals: Vital Signs - 12hr 08/09/20 08/09/20 08/09/20 04:17 07:39 10:00 Temperature 98.8 F 99.2 F Pulse Rate 59 L 66 77 Respiratory 18 19 Rate Blood Pressure 128/72 125/63 O2 Sat by Pulse 96 98 Oximetry 08/09/20 10:49 Temperature 97.5 F L Pulse Rate 91 H Respiratory 19 Rate Blood Pressure 106/48 O2 Sat by Pulse 97 Oximetry - Labs CBC & Chem 7: 08/08/20 04:48 08/10/20 12:51 Labs: Abnormal lab results 08/08/20 08/08/20 08/09/20 Range/Units 15:15 21:21 07:39 POC Glucose 389 H 138 H 168 H (70-105) mg/dL 08/09/20 Range/Units 10:48 POC Glucose 382 H (70-105) mg/dL
--- NOTE | 2020-08-09 17:22 | Progress Note ---
Assessment and Plan Acute severe metabolic acidosis secondary Diabetic ketoacidosis Acute kidney injury Hyperkalemia Hemoconcentration Medication noncompliance Thrombocytopenia Adult failure to thrive Hypertension - prn supplemental oxygen to keep O2 sats > 90% - prn bronchodilators (BEE) with pulm hygiene per RT - accuchecks with glycemic control per SSI for target blood glucose < 180 mg/dL - avoid nephrotoxins, renally dose all medications - continue mobility protocols to prevent pressure ulcers - PT/OT as tolerated - Wound care per RN/WCT - tobacco abstinence strongly counseled at the bedside - home oxygen evaluation at discharge - GI & VTE prophylaxis - Flu & pneumovax per protocol - Pulmonary out patient follow up for PFTs and optimization of respiratory status - prn analgesia per pain score - continue other care per attending / other consultants ... re-evaluate in am & prn Subjective Date of service: 08/09/20 Principal diagnosis: DKA; JOEL; Hyperkalemia; Thrombocytopenia; Adult FTT; HTN Interval history: Patient is seen today for: DKA; JOEL; Hyperkalemia; Thrombocytopenia; Adult FTT; HTN Seen and examined at bedside; 24hour events reviewed; nursing and respiratory care staff consulted; no adverse overnight events reported to me; resting peacefully in bed; Objective Vital Signs - 12hr 08/09/20 08/09/20 08/09/20 07:39 10:00 10:49 Temperature 99.2 F 97.5 F L Pulse Rate 66 77 91 H Respiratory 19 19 Rate Blood Pressure 125/63 106/48 O2 Sat by Pulse 98 97 Oximetry Constitutional: no acute distress Eyes: non-icteric ENT: oropharynx moist Neck: supple, no lymphadenopathy Effort: normal Ascultation: Bilateral: clear Percussion: Bilateral: not dull Cardiovascular: regular rate and rhythm Gastrointestinal: normoactive bowel sounds, soft, non-tender, non-distended Integumentary: normal Extremities: no cyanosis, no edema, pulses normal, no ischemia or petechiae Neurologic: non-focal exam, pupils equal and round, CN II-XII normal, motor strength normal and Psychiatric: mood appropriate, affect normal CBC and BMP: 08/08/20 04:48 08/08/20 04:48 ABG, PT/INR, D-dimer: PT/INR, D-dimer D-Dimer 2909.58 ng/mlDDU (0-234) H 08/07/20 15:04 Abnormal lab findings: Abnormal Labs 08/07/20 08/07/20 08/07/20 03:27 03:30 03:30 WBC 17.1 H RBC 5.63 H Hgb 16.1 H Hct 52.3 H MCHC 31 L RDW 15.9 H Plt Count 106 L Lymph % (Auto) 4.8 L [place] % (Auto) Lymph # (Auto) 0.8 L [place] # (Auto) 1.1 H Seg Neutrophils % 88.6 H Seg Neutrophils # 15.1 H D-Dimer VBG pH Sodium 127 L Potassium 5.7 H Chloride 82.9 L Carbon Dioxide 4 L* BUN 41 H Creatinine 2.0 H Glucose 638 H* POC Glucose > 600 H Hemoglobin A1c Calcium Phosphorus Magnesium Alkaline Phosphatase 193 H Total Protein 8.5 H 08/07/20 08/07/20 08/07/20 03:30 04:46 06:06 WBC RBC Hgb Hct MCHC RDW Plt Count Lymph % (Auto) [place] % (Auto) Lymph # (Auto) [place] # (Auto) Seg Neutrophils % Seg Neutrophils # D-Dimer VBG pH 7.016 L* Sodium 131 L Potassium 6.0 H Chloride 84.0 L Carbon Dioxide 5 L* BUN 43 H Creatinine 2.1 H Glucose 604 H* POC Glucose Hemoglobin A1c 20.6 H Calcium Phosphorus Magnesium Alkaline Phosphatase Total Protein 08/07/20 08/07/20 08/07/20 06:06 06:24 07:38 WBC RBC Hgb Hct MCHC RDW Plt Count Lymph % (Auto) [place] % (Auto) Lymph # (Auto) [place] # (Auto) Seg Neutrophils % Seg Neutrophils # D-Dimer VBG pH Sodium 133 L Potassium 5.4 H Chloride 90.3 L Carbon Dioxide < 2.0 L* BUN 42 H Creatinine 1.8 H Glucose 558 H* POC Glucose 550 H 444 H Hemoglobin A1c Calcium 8.3 L Phosphorus 5.90 H Magnesium 2.40 H Alkaline Phosphatase Total Protein 08/07/20 08/07/20 08/07/20 08:29 09:18 10:16 WBC RBC Hgb Hct MCHC RDW Plt Count Lymph % (Auto) [place] % (Auto) Lymph # (Auto) [place] # (Auto) Seg Neutrophils % Seg Neutrophils # D-Dimer VBG pH Sodium 136 L Potassium 5.3 H Chloride 93.7 L Carbon Dioxide 7 L* BUN 42 H Creatinine 1.8 H Glucose 411 H POC Glucose 400 H 346 H Hemoglobin A1c Calcium 8.2 L Phosphorus Magnesium Alkaline Phosphatase Total Protein 08/07/20 08/07/20 08/07/20 11:07 12:15 13:02 WBC RBC Hgb Hct MCHC RDW Plt Count Lymph % (Auto) [place] % (Auto) Lymph # (Auto) [place] # (Auto) Seg Neutrophils % Seg Neutrophils # D-Dimer VBG pH Sodium 135 L Potassium 5.8 H Chloride Carbon Dioxide 11 L BUN 37 H Creatinine 1.4 H Glucose 221 H POC Glucose 346 H 301 H Hemoglobin A1c Calcium Phosphorus Magnesium Alkaline Phosphatase Total Protein 08/07/20 08/07/20 08/07/20 13:45 14:59 15:04 WBC RBC Hgb Hct MCHC RDW Plt Count Lymph % (Auto) [place] % (Auto) Lymph # (Auto) [place] # (Auto) Seg Neutrophils % Seg Neutrophils # D-Dimer VBG pH Sodium 134 L Potassium Chloride Carbon Dioxide 12 L BUN 31 H Creatinine Glucose 171 H POC Glucose 245 H 198 H Hemoglobin A1c Calcium Phosphorus Magnesium Alkaline Phosphatase Total Protein 08/07/20 08/07/20 08/07/20 15:04 16:10 17:02 WBC RBC Hgb Hct MCHC RDW Plt Count Lymph % (Auto) [place] % (Auto) Lymph # (Auto) [place] # (Auto) Seg Neutrophils % Seg Neutrophils # D-Dimer 2909.58 H VBG pH Sodium Potassium Chloride Carbon Dioxide BUN Creatinine Glucose POC Glucose 179 H 171 H Hemoglobin A1c Calcium Phosphorus Magnesium Alkaline Phosphatase Total Protein 08/07/20 08/07/20 08/07/20 17:42 19:53 20:37 WBC RBC Hgb Hct MCHC RDW Plt Count Lymph % (Auto) [place] % (Auto) Lymph # (Auto) [place] # (Auto) Seg Neutrophils % Seg Neutrophils # D-Dimer VBG pH Sodium 136 L Potassium Chloride Carbon Dioxide 20 L D BUN 26 H Creatinine Glucose 134 H POC Glucose 154 H 147 H Hemoglobin A1c Calcium Phosphorus Magnesium Alkaline Phosphatase Total Protein 08/07/20 08/07/20 08/07/20 21:35 22:24 22:47 WBC RBC Hgb Hct MCHC RDW Plt Count Lymph % (Auto) [place] % (Auto) Lymph # (Auto) [place] # (Auto) Seg Neutrophils % Seg Neutrophils # D-Dimer VBG pH Sodium 136 L Potassium Chloride Carbon Dioxide 16 L BUN 23 H Creatinine Glucose 194 H POC Glucose 162 H 176 H Hemoglobin A1c Calcium Phosphorus Magnesium Alkaline Phosphatase Total Protein 08/07/20 08/08/20 08/08/20 23:16 00:45 01:28 WBC RBC Hgb Hct MCHC RDW Plt Count Lymph % (Auto) [place] % (Auto) Lymph # (Auto) [place] # (Auto) Seg Neutrophils % Seg Neutrophils # D-Dimer VBG pH Sodium Potassium Chloride Carbon Dioxide BUN Creatinine Glucose POC Glucose 158 H 140 H 128 H Hemoglobin A1c Calcium Phosphorus Magnesium Alkaline Phosphatase Total Protein 08/08/20 08/08/20 08/08/20 02:31 04:48 04:48 WBC RBC Hgb Hct MCHC RDW Plt Count 75 L Lymph % (Auto) 10.9 L [place] % (Auto) 9.6 H Lymph # (Auto) 1.0 L [place] # (Auto) 0.9 H Seg Neutrophils % 79.3 H Seg Neutrophils # D-Dimer VBG pH Sodium Potassium Chloride Carbon Dioxide 21 L BUN Creatinine Glucose 142 H POC Glucose 117 H Hemoglobin A1c Calcium Phosphorus Magnesium Alkaline Phosphatase Total Protein 08/08/20 08/08/20 08/08/20 08:18 11:47 15:15 WBC RBC Hgb Hct MCHC RDW Plt Count Lymph % (Auto) [place] % (Auto) Lymph # (Auto) [place] # (Auto) Seg Neutrophils % Seg Neutrophils # D-Dimer VBG pH Sodium Potassium Chloride Carbon Dioxide BUN Creatinine Glucose POC Glucose 188 H 307 H 389 H Hemoglobin A1c Calcium Phosphorus Magnesium Alkaline Phosphatase Total Protein 08/08/20 08/09/20 08/09/20 21:21 07:39 10:48 WBC RBC Hgb Hct MCHC RDW Plt Count Lymph % (Auto) [place] % (Auto) Lymph # (Auto) [place] # (Auto) Seg Neutrophils % Seg Neutrophils # D-Dimer VBG pH Sodium Potassium Chloride Carbon Dioxide BUN Creatinine Glucose POC Glucose 138 H 168 H 382 H Hemoglobin A1c Calcium Phosphorus Magnesium Alkaline Phosphatase Total Protein 08/09/20 16:06 WBC RBC Hgb Hct MCHC RDW Plt Count Lymph % (Auto) [place] % (Auto) Lymph # (Auto) [place] # (Auto) Seg Neutrophils % Seg Neutrophils # D-Dimer VBG pH Sodium Potassium Chloride Carbon Dioxide BUN Creatinine Glucose POC Glucose 327 H Hemoglobin A1c Calcium Phosphorus Magnesium Alkaline Phosphatase Total Protein Allied health notes reviewed: nursing
[2020-08-10] MEDS: SODIUM CHLORIDE 0.9% 1000 ML 1,000 ML IV SCH ×2 (02:48→12:27)
[2020-08-10] MEDS: HEPARIN 5,000 UNIT/1 ML VIAL SUB-Q SCH ×2 (06:35→13:01)
[2020-08-10 08:21] VITALS: BP 144/74
[2020-08-10] MEDS: INSULIN REGULAR, HUMAN 100 UNITS/1 ML SUB-Q SCH ×3 (08:38→17:25)
[2020-08-10] MEDS: INSULIN NPH, HUMAN 100 UNIT/1 ML SUB-Q SCH (08:38)
[2020-08-10] MEDS: FAMOTIDINE 20 MG/2 ML INJ IV SCH (09:15)
[2020-08-10] MEDS ORDERED: TAMSULOSIN 0.4 MG CAP PO SCH (12:00)
[2020-08-10] MEDS: metFORMIN 850 MG TAB PO SCH ×2 (12:22→17:24)
[2020-08-10 13:46] LABS: BUN/Creatinine Ratio 20; Blood Urea Nitrogen 18 mg/dL (9-20); Calcium 9.5 mg/dL (8.4-10.2); Hemolysis Index 8
--- NOTE | 2020-08-10 14:09 | Progress Note ---
Assessment and Plan 70-year-old -[place] male with known history of diabetes mellitus presenting in the emergency room today for evaluation of elevated blood glucose. Patient indicates that he has been on Metformin for his diabetes mellitus but had stopped taking the medication several months ago. He also has not been on his insulin is scheduled. He has been having dry mouth, increased thirst and increased urinary frequency. Patient denies any fever or chills, no chest pain or shortness of breath, no nausea vomiting, no abdominal pain. No hematuria or dysuria. Patient denies any sick contacts and no recent travel. Denies any contact with anyone with COVID-19. Work-up in the emergency room revealed elevated blood glucose in the 600s, hyperkalemia of 6.0, anion gap of 46. Patient is being admitted into the intensive care unit with diabetic ketoacidosis and started on insulin and IV fluid. Patient transfered to Telemetry. Patient alert, awake. Patients anion gap improved. To days Anion gap is 18. Blood sugur 126. Patient denies chest pain or shortness of breath. Has slight cough. Patient is on room air. O2 saturation 99%. Patient afebrile. No Leukocytosis. Chest xray done 08/07/20 reported no acute findings. Patient is on S/C Insulin, S/C Heparin and famotidine. K= 3.2. Supplement K+ and recheck K+ - Patient Problems (1) DKA (diabetic ketoacidoses) Current Visit: Yes Status: Acute Qualifiers: Diabetes mellitus type: type 2 Diabetes mellitus complication detail: without coma Qualified Code(s): E11.10 - Type 2 diabetes mellitus with ketoacidosis without coma Plan to address problem: Improving. Anion gap 18 Blood sugur 126 Management as per primary care. (2) Hyperkalemia Current Visit: Yes Status: Acute Plan to address problem: Improved. To days K+ is 3.2. Subjective Date of service: 08/10/20 Principal diagnosis: DKA; JOEL; Hyperkalemia; Thrombocytopenia; Adult FTT; HTN Interval history: 70-year-old -[place] male with known history of diabetes mellitus presenting in the emergency room today for evaluation of elevated blood glucose. Patient indicates that he has been on Metformin for his diabetes mellitus but had stopped taking the medication several months ago. He also has not been on his insulin is scheduled. He has been having dry mouth, increased thirst and increased urinary frequency. Patient denies any fever or chills, no chest pain or shortness of breath, no nausea vomiting, no abdominal pain. No hematuria or dysuria. Patient denies any sick contacts and no recent travel. Denies any contact with anyone with COVID-19. Work-up in the emergency room revealed elevated blood glucose in the 600s, hyperkalemia of 6.0, anion gap of 46. Patient is being admitted into the intensive care unit with diabetic ketoacidosis and started on insulin and IV fluid. Patient transfered to Telemetry. Patient alert, awake. Patients anion gap improved. To days Anion gap is 18. Blood sugur 126. Patient denies chest pain or shortness of breath. Has slight cough. Patient is on room air. O2 saturation 99%. Patient afebrile. No Leukocytosis. Chest xray done 08/07/20 reported no acute findings. Patient is on S/C Insulin, S/C Heparin and famotidine. Objective Vital Signs - 12hr 08/10/20 08/10/20 08/10/20 04:17 07:34 07:35 Temperature 98.3 F 97.6 F Pulse Rate 64 56 L 72 Respiratory 16 16 Rate Blood Pressure 126/63 144/74 O2 Sat by Pulse 96 99 Oximetry Constitutional: no acute distress, alert Eyes: non-icteric ENT: oropharynx moist Neck: supple, no lymphadenopathy Effort: normal Ascultation: Bilateral: clear Percussion: Bilateral: not dull Cardiovascular: regular rate and rhythm Gastrointestinal: normoactive bowel sounds, soft, non-tender, non-distended Integumentary: normal Extremities: no cyanosis, no edema, pulses normal, no ischemia or petechiae Neurologic: non-focal exam, pupils equal and round, CN II-XII normal Psychiatric: mood appropriate, affect normal CBC and BMP: 08/08/20 04:48 08/10/20 12:51 ABG, PT/INR, D-dimer: PT/INR, D-dimer D-Dimer 2909.58 ng/mlDDU (0-234) H 08/07/20 15:04 Abnormal lab findings: Abnormal Labs 08/07/20 08/07/20 08/07/20 03:27 03:30 03:30 WBC 17.1 H RBC 5.63 H Hgb 16.1 H Hct 52.3 H MCHC 31 L RDW 15.9 H Plt Count 106 L Lymph % (Auto) 4.8 L [place] % (Auto) Lymph # (Auto) 0.8 L [place] # (Auto) 1.1 H Seg Neutrophils % 88.6 H Seg Neutrophils # 15.1 H D-Dimer VBG pH Sodium 127 L Potassium 5.7 H Chloride 82.9 L Carbon Dioxide 4 L* BUN 41 H Creatinine 2.0 H Glucose 638 H* POC Glucose > 600 H Hemoglobin A1c Calcium Phosphorus Magnesium Alkaline Phosphatase 193 H Total Protein 8.5 H Prostate Specific Ag 08/07/20 08/07/20 08/07/20 03:30 04:46 06:06 WBC RBC Hgb Hct MCHC RDW Plt Count Lymph % (Auto) [place] % (Auto) Lymph # (Auto) [place] # (Auto) Seg Neutrophils % Seg Neutrophils # D-Dimer VBG pH 7.016 L* Sodium 131 L Potassium 6.0 H Chloride 84.0 L Carbon Dioxide 5 L* BUN 43 H Creatinine 2.1 H Glucose 604 H* POC Glucose Hemoglobin A1c 20.6 H Calcium Phosphorus Magnesium Alkaline Phosphatase Total Protein Prostate Specific Ag 08/07/20 08/07/20 08/07/20 06:06 06:24 07:38 WBC RBC Hgb Hct MCHC RDW Plt Count Lymph % (Auto) [place] % (Auto) Lymph # (Auto) [place] # (Auto) Seg Neutrophils % Seg Neutrophils # D-Dimer VBG pH Sodium 133 L Potassium 5.4 H Chloride 90.3 L Carbon Dioxide < 2.0 L* BUN 42 H Creatinine 1.8 H Glucose 558 H* POC Glucose 550 H 444 H Hemoglobin A1c Calcium 8.3 L Phosphorus 5.90 H Magnesium 2.40 H Alkaline Phosphatase Total Protein Prostate Specific Ag 08/07/20 08/07/20 08/07/20 08:29 09:18 10:16 WBC RBC Hgb Hct MCHC RDW Plt Count Lymph % (Auto) [place] % (Auto) Lymph # (Auto) [place] # (Auto) Seg Neutrophils % Seg Neutrophils # D-Dimer VBG pH Sodium 136 L Potassium 5.3 H Chloride 93.7 L Carbon Dioxide 7 L* BUN 42 H Creatinine 1.8 H Glucose 411 H POC Glucose 400 H 346 H Hemoglobin A1c Calcium 8.2 L Phosphorus Magnesium Alkaline Phosphatase Total Protein Prostate Specific Ag 08/07/20 08/07/20 08/07/20 11:07 12:15 13:02 WBC RBC Hgb Hct MCHC RDW Plt Count Lymph % (Auto) [place] % (Auto) Lymph # (Auto) [place] # (Auto) Seg Neutrophils % Seg Neutrophils # D-Dimer VBG pH Sodium 135 L Potassium 5.8 H Chloride Carbon Dioxide 11 L BUN 37 H Creatinine 1.4 H Glucose 221 H POC Glucose 346 H 301 H Hemoglobin A1c Calcium Phosphorus Magnesium Alkaline Phosphatase Total Protein Prostate Specific Ag 08/07/20 08/07/20 08/07/20 13:45 14:59 15:04 WBC RBC Hgb Hct MCHC RDW Plt Count Lymph % (Auto) [place] % (Auto) Lymph # (Auto) [place] # (Auto) Seg Neutrophils % Seg Neutrophils # D-Dimer VBG pH Sodium 134 L Potassium Chloride Carbon Dioxide 12 L BUN 31 H Creatinine Glucose 171 H POC Glucose 245 H 198 H Hemoglobin A1c Calcium Phosphorus Magnesium Alkaline Phosphatase Total Protein Prostate Specific Ag 08/07/20 08/07/20 08/07/20 15:04 16:10 17:02 WBC RBC Hgb Hct MCHC RDW Plt Count Lymph % (Auto) [place] % (Auto) Lymph # (Auto) [place] # (Auto) Seg Neutrophils % Seg Neutrophils # D-Dimer 2909.58 H VBG pH Sodium Potassium Chloride Carbon Dioxide BUN Creatinine Glucose POC Glucose 179 H 171 H Hemoglobin A1c Calcium Phosphorus Magnesium Alkaline Phosphatase Total Protein Prostate Specific Ag 08/07/20 08/07/20 08/07/20 17:42 19:53 20:37 WBC RBC Hgb Hct MCHC RDW Plt Count Lymph % (Auto) [place] % (Auto) Lymph # (Auto) [place] # (Auto) Seg Neutrophils % Seg Neutrophils # D-Dimer VBG pH Sodium 136 L Potassium Chloride Carbon Dioxide 20 L D BUN 26 H Creatinine Glucose 134 H POC Glucose 154 H 147 H Hemoglobin A1c Calcium Phosphorus Magnesium Alkaline Phosphatase Total Protein Prostate Specific Ag 08/07/20 08/07/20 08/07/20 21:35 22:24 22:47 WBC RBC Hgb Hct MCHC RDW Plt Count Lymph % (Auto) [place] % (Auto) Lymph # (Auto) [place] # (Auto) Seg Neutrophils % Seg Neutrophils # D-Dimer VBG pH Sodium 136 L Potassium Chloride Carbon Dioxide 16 L BUN 23 H Creatinine Glucose 194 H POC Glucose 162 H 176 H Hemoglobin A1c Calcium Phosphorus Magnesium Alkaline Phosphatase Total Protein Prostate Specific Ag 08/07/20 08/08/20 08/08/20 23:16 00:45 01:28 WBC RBC Hgb Hct MCHC RDW Plt Count Lymph % (Auto) [place] % (Auto) Lymph # (Auto) [place] # (Auto) Seg Neutrophils % Seg Neutrophils # D-Dimer VBG pH Sodium Potassium Chloride Carbon Dioxide BUN Creatinine Glucose POC Glucose 158 H 140 H 128 H Hemoglobin A1c Calcium Phosphorus Magnesium Alkaline Phosphatase Total Protein Prostate Specific Ag 08/08/20 08/08/20 08/08/20 02:31 04:48 04:48 WBC RBC Hgb Hct MCHC RDW Plt Count 75 L Lymph % (Auto) 10.9 L [place] % (Auto) 9.6 H Lymph # (Auto) 1.0 L [place] # (Auto) 0.9 H Seg Neutrophils % 79.3 H Seg Neutrophils # D-Dimer VBG pH Sodium Potassium Chloride Carbon Dioxide 21 L BUN Creatinine Glucose 142 H POC Glucose 117 H Hemoglobin A1c Calcium Phosphorus Magnesium Alkaline Phosphatase Total Protein Prostate Specific Ag 08/08/20 08/08/20 08/08/20 08:18 11:47 15:15 WBC RBC Hgb Hct MCHC RDW Plt Count Lymph % (Auto) [place] % (Auto) Lymph # (Auto) [place] # (Auto) Seg Neutrophils % Seg Neutrophils # D-Dimer VBG pH Sodium Potassium Chloride Carbon Dioxide BUN Creatinine Glucose POC Glucose 188 H 307 H 389 H Hemoglobin A1c Calcium Phosphorus Magnesium Alkaline Phosphatase Total Protein Prostate Specific Ag 08/08/20 08/09/20 08/09/20 21:21 07:39 10:48 WBC RBC Hgb Hct MCHC RDW Plt Count Lymph % (Auto) [place] % (Auto) Lymph # (Auto) [place] # (Auto) Seg Neutrophils % Seg Neutrophils # D-Dimer VBG pH Sodium Potassium Chloride Carbon Dioxide BUN Creatinine Glucose POC Glucose 138 H 168 H 382 H Hemoglobin A1c Calcium Phosphorus Magnesium Alkaline Phosphatase Total Protein Prostate Specific Ag 08/09/20 08/09/20 08/10/20 16:06 20:44 04:50 WBC RBC Hgb Hct MCHC RDW Plt Count Lymph % (Auto) [place] % (Auto) Lymph # (Auto) [place] # (Auto) Seg Neutrophils % Seg Neutrophils # D-Dimer VBG pH Sodium Potassium Chloride Carbon Dioxide BUN Creatinine Glucose POC Glucose 327 H 319 H 136 H Hemoglobin A1c Calcium Phosphorus Magnesium Alkaline Phosphatase Total Protein Prostate Specific Ag 08/10/20 08/10/20 08/10/20 07:47 11:53 12:51 WBC RBC Hgb Hct MCHC RDW Plt Count Lymph % (Auto) [place] % (Auto) Lymph # (Auto) [place] # (Auto) Seg Neutrophils % Seg Neutrophils # D-Dimer VBG pH Sodium Potassium 3.2 L Chloride Carbon Dioxide BUN Creatinine Glucose 126 H POC Glucose 210 H 213 H Hemoglobin A1c Calcium Phosphorus Magnesium Alkaline Phosphatase Total Protein Prostate Specific Ag 08/10/20 12:51 WBC RBC Hgb Hct MCHC RDW Plt Count Lymph % (Auto) [place] % (Auto) Lymph # (Auto) [place] # (Auto) Seg Neutrophils % Seg Neutrophils # D-Dimer VBG pH Sodium Potassium Chloride Carbon Dioxide BUN Creatinine Glucose POC Glucose Hemoglobin A1c Calcium Phosphorus Magnesium Alkaline Phosphatase Total Protein Prostate Specific Ag 50.14 H Chest x-ray: report reviewed, image reviewed Additional Studies: CHEST 1 VIEW 08/07/2020 3:27 PM INDICATION / CLINICAL INFORMATION: chest pain. COMPARISON: None available. FINDINGS: SUPPORT DEVICES: None. HEART / MEDIASTINUM: No significant abnormality. LUNGS / PLEURA: No significant pulmonary or pleural abnormality. No pneumothorax. ADDITIONAL FINDINGS: No significant additional findings. IMPRESSION: 1. No acute findings. Allied health notes reviewed: nursing
[2020-08-10] MEDS ORDERED: POTASSIUM CHLORIDE ER 20 MEQ TAB PO SCH (16:30)
--- NOTE | 2020-08-10 16:35 | Discharge Summary ---
Providers - Providers Date of Admission: 08/07/20 05:21 Date of discharge: 08/10/20 Attending physician: CLAUDE DOOLEY 08/07/20 05:43 Consult to Dietitian/Nutrition [CONS] Routine Physician Instructions: Reason For Exam: Reason for Consult: Diet education Consult to Physician [CONS] Routine Comment: dr. concepcion farr/ elijah Consulting Provider: CORRINE SANDERS Physician Instructions: Reason For Exam: DKA - ON I NSULIN DRDANIEL Primary care physician: SHIVANI GALLOWAY Hospitalization Condition: Good Pertinent studies: CXR Hospital course: 70-year-old -[place] male with known history of diabetes mellitus presenting in the emergency room for evaluation of elevated blood glucose. Patient indicates that he has been on Metformin for his diabetes mellitus but had stopped taking the medication several months ago. Patient also states that he went to a urologist for his history of BPH and was found to have elevated blood glucose and was referred to his PCP for management. He followed up with his PCP but continued to have elevated blood glucose at home, then he decided to come to hospital for further evaluation. Work-up in the emergency room reveals elevated blood glucose in the 600s, hyperkalemia of 6.0, anion gap of 46. Patient was admitted into the intensive care unit with diabetic ketoacidosis and started on insulin and IV fluid. Patient was weaned off from insulin drip as BG improved and anion gap closed. Patient was continued on iv fluid, consistent carb diet, Placed on Long-acting insulin and SSI. Adjusted long acting insulin dose to better improve BG level, counselled for dietary and insulin regimen compliance. Patient was also initiated on Flomax for his history of BPH and recommended to outpatient follow- up with urologist. Patient was then discharged home in stable condition with outpt f/u. Disposition: [id number] HOME UNDER HOME [facility] Final Discharge Diagnosis (Prints w/discharge instructions): DKA with uncontrolled diabetes mellitus type 2 A1c 20.6. BPH with elevated PSA. Hyponatremia due to hyperglycemia, resolved. Hyperkalemia due to DKA resolved Time spent for discharge: 34 minutes Core Measure Documentation - Palliative Care Palliative Care/ Comfort Measures: Not Applicable - Core Measures Any of the following diagnoses?: none Exam - Physical Exam Narrative exam: GENERAL: well-developed and well-nourished elderly -[place]istani male lying on bed appeared to be in no discomfort. HEENT: Normocephalic. Atraumatic. No conjunctival congestion or icterus. Patient has moist mucous membranes. NECK: Supple. Trachea midline. CHEST/LUNGS: Clear to auscultated bilaterally, breathing nonlabored. No wheezes crackles or rhonchi. HEART/CARDIOVASCULAR: Regular in rate and rhythm. S1 and S2 positive. ABDOMEN: Abdomen is soft, nontender. Patient has normal bowel sounds. SKIN: There is no rash. Warm and dry. NEURO: No focal motor deficit. Follows command. MUSCULOSKELETAL: No joint effusion or tenderness. EXTRIMITY: No edema, no cyanosis or clubbing. PSYCH: Cooperative. - Constitutional Vitals: Temp Pulse Resp BP Pulse Ox 97.6 F 72 16 144/74 99 08/10/20 07:34 08/10/20 07:35 08/10/20 07:34 08/10/20 07:34 08/10/20 07:34 Plan Activity: advance as tolerated Weight Bearing Status: Weight Bear as Tolerated Diet: low carbohydrate Special Instructions: home health RN Additional Instructions: --Please follow-up with urologist in 1 week for BPH and elevated PSA. --Please continue Flomax for now. --Please take NPH (70/30) 32 units 30 minutes prior to breakfast and dinner. --Please check your blood glucose before every meal and at bedtime. --Please use sliding scale insulin in addition to NPH 70/30 for better glycemic control as instructed as follows: BG 150-199: Apply 2 units. BG 200-249: apply 4 units. BG 250 -299: apply 6 units. BG >300 apply 8 units, >350 x2 call PCP Follow up with: SHIVANI GALLOWAY MD [Primary Care Provider] - 3-5 Days MAXINE HERRMANN MD [Staff Physician] - 7 Days Prescriptions: Tamsulosin [Flomax] 0.4 mg PO QDAY #60 capsule metFORMIN [Glucophage] 850 mg PO BIDDIAB #60 tablet Insulin Regular, Human [HumuLIN R] 0 units SUB-Q ACHS 30 Days Insulin NPH, Human [NovoLIN N] 32 unit SUB-Q BIDDIAB 30 Days Other Discharge Orders: Glucometer (Amb) Location: None Selected Glucometer supplies[Amb] Location: None Selected
[2020-08-10] MEDS ORDERED: INSULIN NPH, HUMAN 100 UNIT/1 ML SUB-Q SCH (17:00)
[2020-08-11] MEDS ORDERED: FAMOTIDINE 20 MG TAB PO SCH (10:00)
== END 2020-08-10 18:26 | disposition home health service (06) | DRG 638 ==
LOC: ED 03:02 → CC1 05:21 → 4A 08-08 14:51
PROVIDERS: ADMIT Internal Medicine Geriatric Medicine; ATTEND Internal Medicine
DX: E11.10 Type 2 diabetes mellitus with ketoacidosis without coma (principal); N17.9 Acute kidney failure, unspecified; E87.1 Hypo-osmolality and hyponatremia; E87.5 Hyperkalemia; Z20.822 Contact with and (suspected) exposure to COVID-19; D69.6 Thrombocytopenia, unspecified; R62.7 Adult failure to thrive; Z91.14 Patient's other noncompliance with medication regimen; Z68.26 Body mass index [BMI] 26.0-26.9, adult
CPT/HCPCS: 36415; 71045; 80048; 80053; 81001; 82140; 82805; 82962; 83036; 83735; 84100; 84145; 84153; 85025; 85379; G0378; J0610; J1644; J1815; J7030; U0003